=== PATIENT | male | born 1965 | race Caucasian/White ===

== ENCOUNTER → 2023-05-31 16:06 | Outpatient (CLI) | payer OTHER, SELFPAY ==
--- NOTE | 2023-05-31 16:09 | DI.US.S_ITS ---
PROCEDURE: US SCROTUM INDICATIONS: PAIN IN LEFT TESTICLE TECHNIQUE: Real-time scanning was performed of the scrotum and testicles, with image documentation. Color and pulse Doppler interrogation was performed of both testicles. COMPARISON: None. FINDINGS: Right: Testicle is normal in size at 5.2 x 3.4 x 2.2 cm, and homogenous in echotexture. Epididymis is normal in overall size at 1.3 centimeters with heterogeneous echotexture. There are multiple epididymal head simple cysts with the largest measuring up to 0.7 centimeters. Punctate echogenic foci are seen within the epididymis.. No hydrocele or varicoceles. Overlying scrotal skin is normal in thickness. Left: Testicle is normal in size at 5.3 x 3.6 x 2.4 cm, and homogeneous in echotexture. Epididymis is normal in overall size at 1.3 centimeters with heterogeneous echotexture. There are multiple epididymal head simple cysts measuring up to 0.3 centimeters. Multiple punctate echogenic foci are seen within the epididymis. There is an ill-defined mixed echogenicity region in the left epididymal head containing areas of vascularity. This area measures 2.7 x 0.7 x 0.9 centimeter. No hydrocele or varicoceles. Overlying scrotal skin is normal in thickness. Doppler: Color and pulse Doppler demonstrate normal and symmetric arterial flow in both testicles. IMPRESSION: 1. No sonographic evidence of testicular torsion. 2. Extratesticular palpable heterogeneous area in the left epididymal head containing ill-defined hypoechoic and hyperechoic areas measuring up to 2.7 cm. The finding is indeterminate. Recommend short interval follow-up scrotal ultrasound. Consider urology consultation. Dictated by: Antonia Servin M.D. on 06/01/2023 at 23:04 Approved by: Antonia Servin M.D. on 06/01/2023 at 23:29
== END ==
PROVIDERS: Referring Provider Family Medicine; Visit Provider Family Medicine
DX: N50.812 Left testicular pain (principal); N50.3 Cyst of epididymis
CPT/HCPCS: 76870

== ENCOUNTER → 2024-01-04 12:49 | Outpatient (CLI) | payer OTHER, SELFPAY ==
--- NOTE | 2024-01-04 12:52 | DI.RAD.S_ITS ---
PROCEDURE: XR RIBS LT MIN 3V W CXR1V INDICATIONS: RIB INJURY TECHNIQUE: 4 views of the ribs were acquired, along with a single view chest. COMPARISON: None. FINDINGS: Surgical changes and devices: None. Bones and chest wall: No fractures or dislocations. No suspicious bony lesions. Overlying soft tissues appear unremarkable. Lungs and pleura: No pleural effusions or pneumothorax. Lungs appear clear. Mediastinum: Mediastinal contours appear normal. Heart size is normal. IMPRESSION: No displaced rib fracture or pneumothorax. Dictated by: Ryan England M.D. on 01/04/2024 at 14:46 Approved by: Ryan England M.D. on 01/04/2024 at 14:47
== END ==
LOC: RAD 12:51
PROVIDERS: PCP Family Medicine; Referring Provider Family Medicine; Visit Provider Family Medicine
DX: S29.9XXA Unspecified injury of thorax, initial encounter (principal); X58.XXXA Exposure to other specified factors, initial encounter
CPT/HCPCS: 71101

== ENCOUNTER → 2025-03-24 09:27 | Outpatient (CLI) | payer OTHER, SELFPAY ==
--- NOTE | 2025-03-24 | DI.MRI.S_ITS ---
PROCEDURE: MR HEAD/BRAIN WO/W CON INDICATIONS: hxof cerebrovascular accident TECHNIQUE: Noncontrast axial T1 spin echo, axial T2 fast spin echo, sagittal and axial FLAIR, coronal T2 fast spin echo, axial gradient echo, axial diffusion and ADC through the brain. After the administration of contrast, axial and coronal and sagittal T1 spin echo with fat saturation through the brain. COMPARISON: None. FINDINGS: Image quality: Excellent. CSF spaces: Basal cisterns are patent. No extra-axial fluid collections. Ventricles are normal in size and shape. Brain: No midline shift. No intracranial bleeds or masses. No abnormal intracranial enhancement. There is cerebral volume loss for age. There is minimal periventricular white matter chronic small vessel ischemic change. The brainstem appears normal. Diffusion-weighted images demonstrate no acute infarct. No chronic ischemic insults. Normal intravascular flow voids are present. Skull and face: Calvarial marrow is normal in signal. Orbits appear normal. Sinuses: Sinuses and mastoids appear clear. IMPRESSION: 1. Mild volume loss and small vessel ischemic disease. 2. No acute process. No recent infarct. Dictated by: Allan Nina M.D. on 03/25/2025 at 13:47 Approved by: Allan Nina M.D. on 03/25/2025 at 13:48
== END ==
PROVIDERS: PCP Family Medicine; Referring Provider Family Medicine; Visit Provider Family Medicine
DX: I67.82 Cerebral ischemia (principal); H53.9 Unspecified visual disturbance; Z86.73 Personal history of transient ischemic attack (TIA), and cerebral infarction without residual deficits
CPT/HCPCS: 70553; A9579

== ENCOUNTER → 2025-04-07 10:37 | Outpatient (CLI) | payer OTHER, SELFPAY ==
--- NOTE | 2025-04-07 10:38 | DI.CT.S_ITS ---
PROCEDURE: CT LUNG LOW DOSE SCREENING INDICATIONS: lung cancer screening TECHNIQUE: Noncontrast 2.0-2.5 mm thick sections acquired from the pulmonary apices to the posterior costophrenic angles. 7 mm thick axial MIP, and 5 mm coronal and sagittal reformats were then acquired. For radiation dose reduction, the following was used: automated exposure control, adjustment of mA and/or kV according to patient size. COMPARISON: None. FINDINGS: Image quality: Diagnostic. Lower Neck: No enlarged lymph nodes. Thyroid: No thyroid nodules which require sonographic follow up, per consensus guidelines. Axillae: No enlarged lymph nodes. Chest Wall: Unremarkable. Bones: No aggressive appearing bony lesions. Lungs and Pleura: No pneumothorax or pleural effusions. Linear scarring/atelectasis at bilateral lung bases are seen. Cystic emphysematous changes are noted in bilateral lung herrera more notably in bilateral upper lobes with a thin walled cyst seen in medial aspect of left apex series 3, image 73 and measures 2.4 x 2.5 cm in size. No consolidation or suspicious nodules. Heart: Heart size is normal. No pericardial effusion. Thoracic Vessels: The aorta and pulmonary arteries demonstrate normal size. Mediastinum and Bhargavi: No enlarged lymph nodes. Esophagus: No wall thickening. No hiatal hernia. Upper Abdomen: Calcified stone is seen in dependent portion of gallbladder lumen. No gallbladder wall thickening. IMPRESSION: 1. No suspicious pulmonary nodules. 2. Cystic emphysematous changes in bilateral lung herrera more notably in bilateral upper lobes as above. LUNG-RADS 1; continued annual screening, if eligible. Clinically Significant Non-pulmonary Findings: None. Dictated by: Jamel Sage M.D. on 04/07/2025 at 21:10 Approved by: Jamel Sage M.D. on 04/07/2025 at 21:13
== END ==
LOC: CT 10:37
PROVIDERS: PCP Family Medicine; Referring Provider Family Medicine; Visit Provider Family Medicine
DX: Z12.2 Encounter for screening for malignant neoplasm of respiratory organs (principal); Z87.891 Personal history of nicotine dependence
CPT/HCPCS: 71271